=== PATIENT | male | born 1990 | race Two or more races ===

== ENCOUNTER 2016-09-17 14:04 | Emergency (ER) | payer OTHER ==
[~2016-09-17] VITALS: Ht 175.3 cm; Wt 85.0 kg
[~2016-09-17 14:04] MED LIST: IOHEXOL-350 100 ML BOTTLE ONE; SODIUM CHLORIDE 0.9% 10ML VIAL ONE
[2016-09-17] MEDS ORDERED: DIPHENHYDRAMINE 50MG/ML VIAL IV ONE (14:30)
[2016-09-17] MEDS ORDERED: FAMOTIDINE 20MG/2ML VIAL IV ONE (14:30)
[2016-09-17] MEDS ORDERED: METHYLPREDNISOLONE SOD SUCC 125 MG/2 ML VIAL IV ONE (14:30)
[2016-09-17] MEDS ORDERED: ASPIRIN 81MG TABLET PO STA (14:30)
[2016-09-17 14:50] LABS: BASOPHILS % 0.7 % (0.0-2.0); EOSINOPHILS % 1.7 % (0.0-5.0); HEMATOCRIT. 47.2 % (42.0-52.0); HEMOGLOBIN. 16.7 g/dL (14.0-18.0); LYMPHOCYTES % 19.8 % (20.0-50.0); MEAN CORPUSCULAR HEMOGLOBIN 29.9 pg (28.0-32.0); MEAN CORPUSCULAR VOLUME 84.3 fL (80.0-94.0); MEAN PLATELET VOLUME 7.7 fl (7.4-10.4); MONOCYTES % 3.8 % (2.0-8.0); PLATELET 234 x1000/uL (130-400); RED CELL DISTRIBUTION WIDTH 13.7 % (11.6-14.6)
[2016-09-17 14:59] LABS: D-DIMER 4.19 mg/L FEU (<0.50); INR 1.1; PARTIAL THROMBOPLASTIN TIME 27.3 sec (24.0-34.0); PROTHROMBIN TIME 11.2 sec
[2016-09-17 15:02] LABS: CARBON DIOXIDE 30 mEq/L (21-32); CHLORIDE 106 mEq/L (98-107)
[2016-09-17 15:05] LABS: TROPONIN I < 0.02 ng/mL (0.00-0.04)
[2016-09-17 18:06] VITALS: BP 113/51
== END 2016-09-17 19:14 | disposition home or self-care (01) ==
LOC: ER 14:04 → EDBEDREQ 16:31 → ER 19:14 → CANBEDREQ 20:19
DX: T78.40XA Allergy, unspecified, initial encounter (principal); X58.XXXA Exposure to other specified factors, initial encounter; Z79.82 Long term (current) use of aspirin; R07.9 Chest pain, unspecified
CPT/HCPCS: 36415; 71010; 71275; 80053; 83880; 84484; 85025; 85379; 85610; 85730; 93005; 93970; 96374; 96375; 99285; A4216; J1200; J2930; J3490; Q9967